=== PATIENT | male | born 1980 | race Caucasian/White ===

== ENCOUNTER 2019-10-16 11:46 | Emergency (ER) | payer MEDICAID ==
[~2019-10-16] VITALS: Ht 167.6 cm; Wt 106.6 kg
[2019-10-16 11:52] VITALS: Ht 167.6 cm; Wt 106.6 kg
[2019-10-16 13:16] VITALS: BP 140/75
== END 2019-10-16 13:05 | disposition home or self-care (01) ==
LOC: ED 11:46
DX: M54.5 Low back pain (principal)